=== PATIENT | male | born 1960 | race Caucasian/White ===

== ENCOUNTER 2023-02-23 15:29 | Inpatient (IN) | payer OTHER ==
[2023-02-23 17:03] VITALS: BMI 32.1
[2023-02-23] MEDS ORDERED: POLYETHYLENE GLYCOL (HEALTHYLAX) 3350 17 GM PACKET PO PRN (17:45)
[2023-02-23] MEDS ORDERED: MAGNESIUM HYDROX 2400MG/30ML ORAL SUSPENSION 30 ML CUP PO PRN (17:45)
[2023-02-23] MEDS ORDERED: IBUPROFEN 400 MG TABLET (FP) PO PRN (17:45)
[2023-02-23] MEDS ORDERED: P-EPHED 60MG/TRIPROLIDI 2.5MG TABLET PO PRN (17:45)
[2023-02-23] MEDS ORDERED: BENZOCAINE/MENTHOL (CHLORASEPTIC ) LOZENGE MM PRN (17:45)
[2023-02-23] MEDS ORDERED: DICYCLOMINE HCL 10 MG CAPSULE PO PRN (17:45)
[2023-02-23] MEDS ORDERED: BENZONATATE 200 MG CAPSULE PO PRN (17:45)
[2023-02-23] MEDS ORDERED: LOPERAMIDE HCL 2 MG CAPSULE PO PRN (17:45)
[2023-02-23] MEDS ORDERED: IBUPROFEN 600 MG TABLET (FP) PO PRN (17:45)
[2023-02-23] MEDS ORDERED: BISMUTH SUBSALICYLATE 524 MG/30 ML PO PRN (17:45)
[2023-02-23] MEDS ORDERED: guaiFENesin 600 MG TABLET.ER (FP) PO PRN (17:45)
[2023-02-23] MEDS ORDERED: ONDANSETRON *ODT* 4 MG TABLET SL PRN (17:45)
[2023-02-23] MEDS: ALBUTEROL SO4 HFA INHALER IH PRN (19:34)
[2023-02-23] MEDS: hydrOXYzine PAMOATE 25 MG CAPSULE (FP) PO PRN (19:35)
[2023-02-23] MEDS ORDERED: TETRAHYDROZOLINE HCL EYE DROPS OU PRN (19:58)
[2023-02-23] MEDS ORDERED: SODIUM CHLORIDE FOR INHALATION 3 ML VIAL.NEB IH ONE (20:40)
[2023-02-23] MEDS: THIAMINE HCL 100 MG TABLET (FP) PO SCH (22:14)
[2023-02-23] MEDS: MELATONIN 5 MG TABLETS PO SCH (22:14)
[2023-02-23] MEDS: METHOCARBAMOL 500 MG TABLET PO PRN (22:15)
[2023-02-23] MEDS: MONTELUKAST NA 10 MG TABLET PO SCH (22:15)
[2023-02-24] MEDS: ALBUTEROL SO4 HFA INHALER IH PRN ×4 (02:31→22:02)
[2023-02-24] MEDS: TAMSULOSIN HCL 0.4 MG CAP PO SCH (09:10)
[2023-02-24] MEDS: PANTOPRAZOLE 20 MG TABLET PO SCH (09:41)
[2023-02-24] MEDS: PRENATAL VITAMINS W/ FOLIC ACID TABLET (FP) PO SCH (09:42)
[2023-02-24] MEDS: amLODIPine BESYLATE 10 MG TABLET (FP) PO SCH (09:42)
[2023-02-24] MEDS: FLUTICASONE PROP 0.05% 16 GM NASAL SPRAY NS SCH (09:42)
[2023-02-24] MEDS ORDERED: chlordiazePOXIDE HCL 25 MG CAPSULE PO PRN (09:54)
[2023-02-24] MEDS: chlordiazePOXIDE HCL 25 MG CAPSULE PO SCH ×3 (10:18→22:01)
[2023-02-24 10:24] LABS: CHLORIDE 103 mmol/L (98-107); POTASSIUM 4.1 mmol/L (3.5-5.1); SODIUM 141 mmol/L (136-145)
[2023-02-24 10:25] LABS: CALCIUM 8.8 mg/dL (8.5-10.1)
[2023-02-24 10:26] LABS: ANION GAP 8 MMOL/L (8-16); BLOOD UREA NITROGEN 15.2 mg/dL (7-18); CO2 30 mmol/L (21-32); GLUCOSE,RANDOM 113 mg/dL (74-106); HEMATOCRIT 38.9 % (35.4-49); HEMOGLOBIN 13.7 GM/dL (11.7-16.9); MCH 31.1 pg (25.7-33.7); MCHC 35.2 g/dl (32.0-35.9); MEAN CELL VOLUME 88.3 fl (80-96); MEAN PLT VOLUME 7.9 fl (7.5-11.1); PLATELET COUNT 164 10^3/uL (134-434); WHITE BLOOD COUNT 6.8 K/mm3 (4.0-10.0)
[2023-02-24 10:29] LABS: CREATININE 0.7 mg/dL (0.55-1.3); SGOT/AST 125 U/L (15-37); SGPT/ALT 89 U/L (13-61)
[2023-02-24 10:30] LABS: BILIRUBIN,TOTAL 1.3 mg/dL (0.2-1); TOT PROT 7.6 g/dl (6.4-8.2)
[2023-02-24 10:32] LABS: ALK PHOS 50 U/L (45-117)
[2023-02-24] MEDS: MELATONIN 5 MG TABLETS PO SCH (21:57)
[2023-02-24] MEDS: MONTELUKAST NA 10 MG TABLET PO SCH (21:57)
[2023-02-24] MEDS: METHOCARBAMOL 500 MG TABLET PO PRN (21:58)
[2023-02-24] MEDS: hydrOXYzine PAMOATE 25 MG CAPSULE (FP) PO PRN (21:58)
[2023-02-24] MEDS: THIAMINE HCL 100 MG TABLET (FP) PO SCH (21:58)
[2023-02-25] MEDS: ALBUTEROL SO4 HFA INHALER IH PRN ×4 (03:55→22:14)
[2023-02-25] MEDS: chlordiazePOXIDE HCL 25 MG CAPSULE PO SCH ×4 (05:13→22:12)
[2023-02-25] MEDS: TAMSULOSIN HCL 0.4 MG CAP PO SCH (08:54)
[2023-02-25] MEDS: PANTOPRAZOLE 20 MG TABLET PO SCH (10:15)
[2023-02-25] MEDS: PRENATAL VITAMINS W/ FOLIC ACID TABLET (FP) PO SCH (10:15)
[2023-02-25] MEDS: FLUTICASONE PROP 0.05% 16 GM NASAL SPRAY NS SCH ×2 (10:15→22:11)
[2023-02-25] MEDS: amLODIPine BESYLATE 10 MG TABLET (FP) PO SCH (10:15)
[2023-02-25] MEDS: MAG HYDROX/AL HYDROX/SIMETH 30 ML UNIT-DOSE CUP PO PRN (20:15)
[2023-02-25] MEDS: MELATONIN 5 MG TABLETS PO SCH (22:12)
[2023-02-25] MEDS: THIAMINE HCL 100 MG TABLET (FP) PO SCH (22:12)
[2023-02-25] MEDS: MONTELUKAST NA 10 MG TABLET PO SCH (22:12)
[2023-02-25] MEDS: ACETAMINOPHEN 325 MG TABLET (FP) PO PRN (22:45)
[2023-02-26] MEDS: chlordiazePOXIDE HCL 25 MG CAPSULE PO SCH ×4 (05:15→22:14)
[2023-02-26] MEDS: ALBUTEROL SO4 HFA INHALER IH PRN ×3 (05:16→21:03)
[2023-02-26] MEDS: TAMSULOSIN HCL 0.4 MG CAP PO SCH (09:12)
[2023-02-26] MEDS: PRENATAL VITAMINS W/ FOLIC ACID TABLET (FP) PO SCH (10:15)
[2023-02-26] MEDS: FLUTICASONE PROP 0.05% 16 GM NASAL SPRAY NS SCH ×2 (10:16→22:17)
[2023-02-26] MEDS: amLODIPine BESYLATE 10 MG TABLET (FP) PO SCH (10:16)
[2023-02-26] MEDS: PANTOPRAZOLE 20 MG TABLET PO SCH (10:16)
[2023-02-26] MEDS: MAG HYDROX/AL HYDROX/SIMETH 30 ML UNIT-DOSE CUP PO PRN (13:15)
[2023-02-26] MEDS: ACETAMINOPHEN 325 MG TABLET (FP) PO PRN (17:25)
[2023-02-26] MEDS: MONTELUKAST NA 10 MG TABLET PO SCH (22:14)
[2023-02-26] MEDS: THIAMINE HCL 100 MG TABLET (FP) PO SCH (22:14)
[2023-02-26] MEDS: MELATONIN 5 MG TABLETS PO SCH (22:14)
[2023-02-26] MEDS: METHOCARBAMOL 500 MG TABLET PO PRN (22:16)
[2023-02-27] MEDS ORDERED: chlordiazePOXIDE HCL 10 MG CAPSULE PO PRN
[2023-02-27] MEDS: chlordiazePOXIDE HCL 10 MG CAPSULE PO SCH ×4 (05:24→22:29)
[2023-02-27] MEDS: TAMSULOSIN HCL 0.4 MG CAP PO SCH (08:21)
[2023-02-27] MEDS: amLODIPine BESYLATE 10 MG TABLET (FP) PO SCH (10:09)
[2023-02-27] MEDS: FLUTICASONE PROP 0.05% 16 GM NASAL SPRAY NS SCH ×2 (10:09→22:29)
[2023-02-27] MEDS: PANTOPRAZOLE 20 MG TABLET PO SCH (10:09)
[2023-02-27] MEDS: PRENATAL VITAMINS W/ FOLIC ACID TABLET (FP) PO SCH (10:11)
[2023-02-27] MEDS: ALBUTEROL SO4 2.5/IPRATROPIUM 0.5 INH SOL 3 ML VIAL.NEB. NEB PRN ×2 (12:20→19:53)
[2023-02-27] MEDS ORDERED: guaiFENesin 200 MG/10 ML 10 ML UNIT-DOSE CUPS PO PRN (20:13)
[2023-02-27] MEDS: METHOCARBAMOL 500 MG TABLET PO PRN (22:29)
[2023-02-27] MEDS: MONTELUKAST NA 10 MG TABLET PO SCH (22:29)
[2023-02-27] MEDS: MELATONIN 5 MG TABLETS PO SCH (22:29)
[2023-02-27] MEDS: THIAMINE HCL 100 MG TABLET (FP) PO SCH (22:30)
[2023-02-27] MEDS: ALBUTEROL SO4 HFA INHALER IH PRN (22:31)
[2023-02-28] MEDS ORDERED: chlordiazePOXIDE HCL 10 MG CAPSULE PO SCH (05:00)
[2023-02-28] MEDS: TAMSULOSIN HCL 0.4 MG CAP PO SCH (08:43)
[2023-02-28 08:55] VITALS: BP 130/87; PULSE 104; RESP 19; TEMP 97.6
[2023-02-28] MEDS: amLODIPine BESYLATE 10 MG TABLET (FP) PO SCH (09:42)
[2023-02-28] MEDS: FLUTICASONE PROP 0.05% 16 GM NASAL SPRAY NS SCH (09:42)
[2023-02-28] MEDS: PRENATAL VITAMINS W/ FOLIC ACID TABLET (FP) PO SCH (09:42)
[2023-02-28] MEDS: PANTOPRAZOLE 20 MG TABLET PO SCH (09:42)
[2023-03-01] MEDS ORDERED: chlordiazePOXIDE HCL 10 MG CAPSULE PO ONE (05:00)
== END 2023-02-28 09:48 | disposition home or self-care (01) | DRG 897 ==
LOC: YASAS 15:29 → Y3N 18:00
PROVIDERS: ADMIT Allergy & Immunology; ATTEND Surgery
PROC: HZ2ZZZZ Detoxification Services for Substance Abuse Treatment (ICD-10-PCS; principal; 2023-02-23)
DX: F10.230 Alcohol dependence with withdrawal, uncomplicated (principal); I10 Essential (primary) hypertension; J45.909 Unspecified asthma, uncomplicated; N40.0 Benign prostatic hyperplasia without lower urinary tract symptoms; R74.8 Abnormal levels of other serum enzymes
CPT/HCPCS: 36415; 80053; 80307; 85027; 86780; 87635; 94640